=== PATIENT | female | born 1945 | race Caucasian/White ===

== ENCOUNTER 2020-05-19 15:18 | Emergency (ER) | payer OTHER ==
[2020-05-19 15:30] VITALS: BP 144/60; PULSE 90; TEMP 98; BMI 21.2
[2020-05-19] MEDS ORDERED: DEXAMETHASONE SOD PHOSPHATE 10 MG/1 ML VIAL IM ONE (16:34)
[2020-05-19] MEDS ORDERED: DEXAMETHASONE SOD PHOSPHATE 10 MG/1 ML VIAL ONE (16:36)
== END 2020-05-19 16:56 | disposition home or self-care (01) ==
LOC: JERFT 15:18
PROC: 3E0233Z Introduction of Anti-inflammatory into Muscle, Percutaneous Approach (ICD-10-PCS; principal; 2020-05-19)
DX: L29.9 Pruritus, unspecified (principal)
CPT/HCPCS: 96372; 99284-25; J1100

== ENCOUNTER 2023-09-07 14:43 | Emergency (ER) | payer OTHER ==
[2023-09-07 14:48] VITALS: RESP 16; BMI 24.8
[2023-09-07] MEDS: SODIUM CHLORIDE 1,000 ML IV STA (16:37)
[2023-09-07 16:51] LABS: URINE APPEARANCE CLEAR; URINE BILIRUBIN NEGATIVE (NEGATIVE); URINE COLOR YELLOW; URINE GLUCOSE (UA) NEGATIVE (NEGATIVE); URINE KETONE NEGATIVE (NEGATIVE); URINE LEUK ESTERASE NEGATIVE (NEGATIVE); URINE NITRITE NEGATIVE (NEGATIVE); URINE PROTEIN NEGATIVE (NEGATIVE); URINE UROBILINOGEN 0.2 mg/dL (0.2-1.0)
[2023-09-07 16:51] LABS: BASO % 0.7 % (0-2.0); EOS % 4.1 % (0-4.5); HEMATOCRIT 39.9 % (32.4-45.2); HEMOGLOBIN 13.4 GM/dL (10.7-15.3); MCHC 33.7 g/dl (32.0-36.0); MEAN CELL VOLUME 89.2 fl (80-96); MEAN PLT VOLUME 7.5 fl (7.5-11.1); MONO % 8.3 % (3.8-10.2); NEUT % 61.9 % (42.8-82.8); PLATELET COUNT 415 10^3/uL (134-434); RBC 4.47 M/mm3 (3.60-5.2); WHITE BLOOD COUNT 9.9 K/mm3 (4.0-10.0)
[2023-09-07 17:11] LABS: POTASSIUM 4.3 mmol/L (3.5-5.1)
[2023-09-07 17:12] LABS: ALBUMIN 3.7 g/dl (3.4-5.0); CALCIUM 9.4 mg/dL (8.5-10.1)
[2023-09-07 17:13] LABS: BLOOD UREA NITROGEN 9.4 mg/dL (7-18)
[2023-09-07 17:16] LABS: CREATININE 0.6 mg/dL (0.55-1.3)
[2023-09-07 17:17] LABS: BILIRUBIN,TOTAL 0.5 mg/dL (0.2-1); TOT PROT 7.4 g/dl (6.4-8.2)
[2023-09-07 17:49] VITALS: BP 157/82; PULSE 74; TEMP 98.4
== END 2023-09-07 19:05 | disposition home or self-care (01) ==
LOC: JER 14:43
PROC: 3E0337Z Introduction of Electrolytic and Water Balance Substance into Peripheral Vein, Percutaneous Approach (ICD-10-PCS; principal; 2023-09-07)
DX: K57.90 Diverticulosis of intestine, part unspecified, without perforation or abscess without bleeding (principal); R10.30 Lower abdominal pain, unspecified
CPT/HCPCS: 36415; 74177-TC; 80053; 81003; 83690; 85025; 87086; 99285-25; Q9967

== ENCOUNTER 2024-02-02 13:40 | Emergency (ER) | payer OTHER ==
[2024-02-02 13:47] VITALS: BP 144/75; PULSE 88; RESP 18; TEMP 98.4; BMI 29.2
[2024-02-02 15:40] LABS: URINE APPEARANCE CLEAR; URINE BILIRUBIN NEGATIVE (NEGATIVE); URINE COLOR YELLOW; URINE GLUCOSE (UA) NEGATIVE (NEGATIVE); URINE KETONE NEGATIVE (NEGATIVE); URINE LEUK ESTERASE NEGATIVE (NEGATIVE); URINE NITRITE NEGATIVE (NEGATIVE); URINE PROTEIN NEGATIVE (NEGATIVE); URINE UROBILINOGEN 0.2 mg/dL (0.2-1.0)
[2024-02-02 15:40] LABS: BASO % 0.8 % (0-2.0); EOS % 1.9 % (0-4.5); HEMATOCRIT 40.9 % (32.4-45.2); HEMOGLOBIN 13.9 GM/dL (10.7-15.3); MCH 30.1 pg (25.7-33.7); MEAN CELL VOLUME 88.5 fl (80-96); MEAN PLT VOLUME 7.5 fl (7.5-11.1); MONO % 7.7 % (3.8-10.2); NEUT % 65.6 % (42.8-82.8); PLATELET COUNT 442 10^3/uL (134-434); RBC 4.62 M/mm3 (3.60-5.2); RDW 13.1 % (11.6-15.6); WHITE BLOOD COUNT 10.7 K/mm3 (4.0-10.0)
[2024-02-02 15:47] LABS: INR 0.99 (0.83-1.09); PROTHROMBIN TIME (PATIENT) 11.4 SEC (9.7-13.0)
[2024-02-02 16:06] LABS: POTASSIUM 4.7 mmol/L (3.5-5.1)
[2024-02-02 16:09] LABS: ALBUMIN 3.8 g/dl (3.4-5.0); BLOOD UREA NITROGEN 10.9 mg/dL (7-18)
[2024-02-02 16:12] LABS: CREATININE 0.6 mg/dL (0.55-1.3)
[2024-02-02 16:14] LABS: BILIRUBIN,TOTAL 0.7 mg/dL (0.2-1); TOT PROT 7.9 g/dl (6.4-8.2)
== END 2024-02-02 16:57 | disposition home or self-care (01) ==
LOC: JERFT 13:40
DX: R21 Rash and other nonspecific skin eruption (principal); R10.32 Left lower quadrant pain
CPT/HCPCS: 36415; 80053; 81003; 85025; 85610; 85730; 86850; 86900; 86901; 87086; 99283-25